=== PATIENT | female | born 2000 | race Caucasian/White ===

== ENCOUNTER 2022-06-02 17:52 | Emergency (ER) | payer OTHER ==
[2022-06-02 18:03] VITALS: BP 105/71; PULSE 94; TEMP 98; BMI 17.2
[2022-06-02] MEDS ORDERED: predniSONE 20 MG TABLET (UD) PO ONE (18:42)
[2022-06-02] MEDS ORDERED: predniSONE 20 MG TABLET (UD) ONE (19:04)
== END 2022-06-02 19:13 | disposition home or self-care (01) ==
LOC: JER 17:52
DX: U07.1 COVID-19 (principal)
CPT/HCPCS: 99283-25